=== PATIENT | male | born 1985 | race Caucasian/White ===

== ENCOUNTER 2022-02-18 16:50 | Emergency (ER) | payer OTHER ==
[~2022-02-18 16:50] MED LIST: ANUSOL HC SUPP1 SUPP PR; CLEOCIN HCL300 MG PO; FLONASE 0.05% N16 GM; IBUPROFEN600 MG PO; TESSALON PERLE100 MG PO
[2022-02-18] MEDS ORDERED: ZOFRAN 4 MG TAB4 MG PO (19:34)
[2022-02-18] MEDS ORDERED: DELSYM30 MG/5 ML PO (19:34)
== END 2022-02-18 19:57 | disposition home or self-care (01) ==
LOC: ER1 16:50
DX: B34.9 Viral infection, unspecified (principal); Z20.822 Contact with and (suspected) exposure to COVID-19
CPT/HCPCS: 71045; 99283; U0002